=== PATIENT | male | born 1960 | race Caucasian/White ===

== ENCOUNTER → 2021-04-22 15:15 | Outpatient (BNVA) | payer BC, SELFPAY | PROVIDERS: Family Provider Family Medicine; Visit Provider Surgery | DX: Z01.812 Encounter for preprocedural laboratory examination (principal); Z20.822 Contact with and (suspected) exposure to COVID-19 | CPT/HCPCS: 87635 ==

== ENCOUNTER 2021-04-25 11:52 | Outpatient (CLI) | payer BC, SELFPAY ==
[2021-04-25 12:05] VITALS: BP 144/92; PULSE 86; RESP 16; TEMP 36.6; O2SAT 97; BMI 22.3
[2021-04-25 12:58] VITALS: BP 126/83; PULSE 82; RESP 16; TEMP 36.6; O2SAT 97
[2021-04-25 13:54] VITALS: BP 126/83; PULSE 86; RESP 16; TEMP 36.6; O2SAT 98
== END 2021-04-25 11:53 | disposition home or self-care (01) ==
LOC: OPS 11:55
PROVIDERS: PCP Family Medicine; Visit Provider Family Medicine
DX: U07.1 COVID-19 (principal)
CPT/HCPCS: 96365

== ENCOUNTER → 2021-06-12 14:11 | Outpatient (BNVA) | payer BC, SELFPAY | PROVIDERS: PCP Family Medicine; Visit Provider Surgery | DX: Z20.822 Contact with and (suspected) exposure to COVID-19 (principal) | CPT/HCPCS: 87635 ==

== ENCOUNTER 2021-07-05 08:40 | Day surgery (SDC) | payer BC, SELFPAY ==
[2021-04-22 15:29] VITALS: BMI 23.7
[2021-07-03 10:40] VITALS: BMI 22.5
--- NOTE | 2021-07-05 09:31 | P.ANESASSM_ITS ---
Pre-Anesthetic Assessment Height/Weight: Height 1.96 m Weight 86.183 kg Preop Diagnosis: diagnostic Operation Date: 07/05/21 10:00 Proposed Procedures p Colonoscopy 66117 Z80.0(Not Applicable) - Calvin Quiroga MD Familial anesthetic complications: None Was Beta Erika taken within 24 hours: N/A Was Clonidine taken within 24 hours: N/A Social No alcohol and No tobacco Exam alert, oriented x 3, clear to auscultation bilaterally and regular rate & rhythm Airway Submandibular: within normal limits Cervical ROM: within normal limits Mallampati: Class II Dentition: chipped Neuropsych Parkinson's Anesthetic Plan ASA status: 2 Anesthesia: MAC Medications/Allergies Home Medications Medication Instructions Recorded Confirmed Last Taken Type carbidopa 25 mg-levodopa 100 mg 1 tab PO TID 03/05/21 07/03/21 Unknown History tablet (Sinemet) rasagiline 1 mg tablet 1 mg PO DAILY 03/05/21 07/03/21 Unknown History coenzyme Q10 100 mg capsule 400 mg PO BID 07/03/21 07/03/21 Unknown History (CoQ-10) Allergies Allergy/AdvReac Type Severity Reaction Status Date / Time No Known Allergies Allergy Unverified 03/05/21 14:42 [facility] Anesthesia Medical History Parkinsons Surgical History History of appendectomy History of back surgery Family History Mother Colon cancer Social History Smoking and tobacco status: never smoked Alcohol intake: never Data Anesthesia Cardiac Studies: No Data to Display
[2021-07-05 09:34] VITALS: BP 161/131; PULSE 93; RESP 18; TEMP 36.3; O2SAT 99
[2021-07-05] MEDS: sodium chloride 0.9% 1,000 ML 30 ML IV (09:40)
--- NOTE | 2021-07-05 10:17 | P.HP_ITS ---
Same Day Surgery H&P Indication for Procedure/HPI DATE OF PROCEDURE: July 05, 2021 CHIEF COMPLAINT/INDICATIONFOR SURGICAL PROCEDURE: colonoscopy PREOP DIAGNOSIS: diagnostic PLANNED PROCEDURE: Operation Date: 07/05/21 10:00 Proposed Procedures p Colonoscopy 07466 Z80.0(Not Applicable) - Calvin Quiroga MD Medications/Allergies* Home Medications Medication Instructions Recorded Confirmed Type carbidopa 25 mg-levodopa 100 mg 1 tab PO TID 03/05/21 07/03/21 History tablet (Sinemet) rasagiline 1 mg tablet 1 mg PO DAILY 03/05/21 07/03/21 History coenzyme Q10 100 mg capsule 400 mg PO BID 07/03/21 07/03/21 History (CoQ-10) Allergies/Adverse Reactions Allergy/AdvReac Type Severity Reaction Status Date / Time No Known Allergies Allergy Verified 07/05/21 09:34 Current Medications: Generic Name Dose Route Start Last Admin Trade Name Freq PRN Reason Stop Dose Admin Sodium Chloride 1,000 mls @ 30 mls/hr 07/05/21 09:30 07/05/21 09:40 Sodium Chloride 0.9% IV 07/06/21 09:29 30 mls/hr .Q24H AYE Administration Pertinent History/Comorbid Conditions* Medical History (Updated 03/05/21 @ 15:01 by Calvin Quiroga MD) Parkinsons Surgical History (Updated 03/05/21 @ 15:01 by Calvin Quiroga MD) History of appendectomy History of back surgery Family History (Updated 03/05/21 @ 14:49 by Ervin Campos MA) Colon cancer Mother Social History Smoking and tobacco status: never smoked Alcohol intake: never Pertinent Exam Findings alert, oriented x 3 and regular rate & rhythm Recommendations Surgery/Procedure today Coding Level of Care Code Acute Scrap Iron Loader for Chg Inderjit
[2021-07-05 10:56] VITALS: BP 121/86; PULSE 69; RESP 12; TEMP 36.3; O2SAT 100
--- NOTE | 2021-07-05 11:03 | ANE.PACU2 ---
Inpatient post-anesthesia follow up: Airway intact: Yes Vital signs: Temperature 97.4 F Pulse Rate 69 Respiratory Rate 12 Blood Pressure 121/86 Pulse Oximetry 100 Oxygen Delivery Me thod Room Air Oxygen Flow Rate Fraction of Inspir ed Oxygen Hydration adequate: Yes Nausea and vomiting: No Pain level: 1 Mental status: Baseline
[2021-07-05 11:05] VITALS: BP 149/102; PULSE 64; RESP 18; O2SAT 98
== END 2021-07-05 11:25 | disposition home or self-care (01) ==
PROVIDERS: PCP Family Medicine; Visit Provider Surgery
PROC: 0DJD8ZZ Inspection of Lower Intestinal Tract, Via Natural or Artificial Opening Endoscopic (ICD-10-PCS; CPT 45378; principal; 2021-07-05 10:00)
DX: D12.5 Benign neoplasm of sigmoid colon (principal); K64.8 Other hemorrhoids; Q27.39 Arteriovenous malformation, other site; Z80.0 Family history of malignant neoplasm of digestive organs; G20 Parkinson's disease
CPT/HCPCS: 45385; 88305; J2704; J7030

== ENCOUNTER 2022-06-09 09:35 | Emergency (ER) | payer OTHER, SELFPAY ==
[2022-06-09 09:40] VITALS: BP 170/103; PULSE 97; RESP 14; TEMP 36.5; O2SAT 99; BMI 24.9
--- NOTE | 2022-06-09 09:59 | ED_ITS ---
HPI - Extremity Injury (Upper) General: Chief Complaint: Wound/Laceration Stated Complaint: left ring finger injury Time Seen by Provider: 06/09/22 09:45 Source: patient Mode of arrival: ambulatory Limitations: no limitations History of Present Illness: Patient is a nice 62-year-old male here for evaluation of a left finger injury that he sustained at work just prior to arrival after he accidentally smashed the finger between 2 pieces of heavy equipment. This is a workers comp injury. Last tetanus unknown. complaint: injury to: left and finger Onset (ago): hour(s) Other Extremity Injury: Left: fingers Other injuries: none Place: work Severity: moderate Relieving factors: none Exacerbating factors: none Context: crush Associated symptoms: Reports no associated symptoms; Denies weakness in extremities Treatments prior to arrival: bandage Review of Systems Musc: Reports: extremity pain (L finger pain) Skin/Breast: Reports: other (skin avulsion L finger) Neuro: Denies: numbness in extremities, weakness in extremities or sensory changes PFS ED PFSH: Medical History Parkinsons Surgical History History of appendectomy History of back surgery Status post colonoscopy with polypectomy (07/05/21) Family History Mother Colon cancer Social History Smoking and tobacco status: never smoked Alcohol intake: never Physical Exam Const: COMMON NORMALS: no acute distress, average body habitus, patient oriented x3, no limitations, healthy appearing, alert and well nourished Extremity: GENERAL: Yes normal exam except as noted LEFT UPPER EXTREMITY: Yes hand & digits OTHER: pt has avulsion of the distal palmar fat pad of L ring finger with no exposed bone/tendon/muscle; he has a subungual hematoma to that finger; no nail injury/damage Neuro: COMMON NORMALS: patient oriented x3, moves all extremities, no focal motor deficits and no sensory deficits noted SENSORIUM/ORIENTATION: Yes alert Procedures Nail Trephination Location (finger): left Location (toes): fourth digit Sterile prep: chlorhexidine Method of drainage: nail cautery Procedure successful: Yes Patient tolerated procedure: well Course Vital Signs: Vital signs: Vital Signs Temperature 97.7 F 06/09/22 09:40 Pulse Rate 97 06/09/22 09:40 Respiratory Rate 14 06/09/22 09:40 Blood Pressure 170/103 06/09/22 09:40 Pulse Oximetry 99 06/09/22 09:40 Oxygen Delivery Me thod 06/09/22 09:40 MDM - Extremity Injury (Upper) Medical Decision Making XR is negative for bony injury. He has avulsion of the distal finger fat pad that is nonrepairable and will have to heal by secondary intent. Tetanus was updated here. He was given IM Ancef and will be placed on oral antibiotics. Subungual hematoma was evacuated with nail trephination. He will follow-up with Worker's Comp. as directed. They can refer to wound care if needed. Wound care discussed at home. Return to ED precautions given. Lab Data Radiology Impressions Finger X-Ray 06/09/22 09:59 Impression: Negative for left fourth finger fracture. Discharge Plan Discharge Patient Disposition: Home Clinical Impression: Subungual hematoma of left ring finger Crushing injury of left ring finger Qualifiers: Encounter type: initial encounter Qualified Code(s): S67.195A - Crushing injury of left ring finger, initial encounter Avulsion of skin of finger without complication Qualifiers: Encounter type: initial encounter Qualified Code(s): S61.209A - Unspecified open wound of unspecified finger without damage to nail, initial encounter Condition: Stable Prescriptions: New cephalexin 500 mg capsule 500 mg PO Q6H 7 Days Qty: 28 0RF No Action carbidopa-levodopa [Sinemet] 25-100 mg tablet 1 tab PO TID rasagiline 1 mg tablet 1 mg PO DAILY coenzyme Q10 [CoQ-10] 100 mg Capsule 400 mg PO BID Discharge Orders: Discharge ED (Routine); Ordered 06/09/22 Ordered By: Yasmin Luu Referrals: Peña Carr MD [Primary Care Provider] - Patient Instructions: Subungual Hematoma, Skin Avulsion (ED), Crush Injury (ED) Activity Restrictions/Additional Instructions: As we discussed keep wound clean with warm soap and water. You have been instructed on wet-to-dry dressing changes. Take full antibiotic course. Please follow-up with Worker's Comp. as instructed. Unfortunately your wound cannot be repaired and will have to heal by secondary intent. Worker's Comp. or primary care may refer you to wound care if they feel this is indicated. Coding Level of Care Code ED Rf Test Engineer for Diony Jansen
--- NOTE | 2022-06-09 09:59 | XR_ITS ---
WS: [id number] 3 views of the left fourth finger, 06/09/2022 Clinical Data: trauma; ring finger Comparison: None. Findings: No fractures or dislocations are seen. There is soft tissue injury to the ventral surface of the dist al phalanx. The joint spaces are not remarkable. XR/XR finger LT min 2V 09818 Impression: Negative for left fourth finger fracture.
[2022-06-09] MEDS: ceFAZolin 1,000 mg SDV 1000 MG IM (11:32)
[2022-06-09] MEDS: tetanus-dipt-pertussis 0.5 mL SDV IM (11:33)
== END 2022-06-09 11:37 | disposition home or self-care (01) ==
PROVIDERS: Emergency Provider Physician Assistant; PCP Family Medicine
DX: S67.195A Crushing injury of left ring finger, initial encounter (principal); S60.142A Contusion of left ring finger with damage to nail, initial encounter; S61.205A Unspecified open wound of left ring finger without damage to nail, initial encounter; G20 Parkinson's disease; W31.9XXA Contact with unspecified machinery, initial encounter; Y99.0 Civilian activity done for income or pay; Z23 Encounter for immunization
CPT/HCPCS: 11740; 73140; 90471; 90715; 96372; 99284; J0690

== ENCOUNTER → 2023-01-16 08:12 | Outpatient (BNVA) | payer BC, SELFPAY | PROVIDERS: PCP Family Medicine; Visit Provider Family Medicine | DX: I10 Essential (primary) hypertension (principal); Z00.00 Encounter for general adult medical examination without abnormal findings | CPT/HCPCS: 80053; 80061 ==

== ENCOUNTER → 2023-08-04 14:50 | Outpatient (BNVA) | payer BC, SELFPAY | PROVIDERS: PCP Family Medicine; Visit Provider Podiatrist Foot & Ankle Surgery | DX: M21.611 Bunion of right foot; M21.612 Bunion of left foot | CPT/HCPCS: 73630 ==

== ENCOUNTER 2023-10-30 05:52 | Day surgery (SDC) | payer BC, SELFPAY ==
[2023-10-30] VITALS (7 sets, daily range): BP systolic 95–115; BP diastolic 57–87; PULSE 60–87; RESP 16–18; TEMP 36.2–36.6; O2SAT 96–100; BMI 22.4
--- NOTE | 2023-10-30 | XR_ITS ---
WS: [id number] C-ARM RADIOGRAPHS LEFT FOOT; 2 IMAGES HISTORY: KEVIN PICS COMPARISON: None available. Intraoperative imaging during intraoperative fusion at the first metatarsophalangeal joint. XR/XR foot LT 2V 13254 IMPRESSION: Intraoperative imaging during first metatarsal phalangeal joint fusion.
[2023-10-30] MEDS: sodium chloride 0.9% 1,000 ML 30 ML IV (06:17)
--- NOTE | 2023-10-30 06:17 | ANES.PREANE2 ---
Pre-Anesthetic Assessment Height/Weight: Height 1.96 m Weight 85.729 kg Temp Pulse Resp BP Pulse Ox O2 Del Method 97.5 F L 87 18 115/87 96 Room Air 10/30/23 06:08 10/30/23 06:08 10/30/23 06:08 10/30/23 06:08 10/30/23 06:08 10/30/23 06:08 Preop Diagnosis: Left bunion Operation Date: 10/30/23 07:00 Proposed Procedures p Arthrodesis Foot Metatarsophalangeal Joint Arthrodesis(Left) - Nils Jimenes, DPM Was Beta Erika taken within 24 hours: N/A Last intake: Intake Last Liquid Date 10/29/23 Last Liquid Time 22:00 Last Solid Date 10/29/23 Last Solid Time 18:00 Social No alcohol and No tobacco Exam alert, oriented x 3, clear to auscultation bilaterally and regular rate & rhythm Airway Submandibular: within normal limits Cervical ROM: within normal limits Mallampati: Class II History/ROS No significant history except as noted CV/HEM Hypertension Neuropsych Parkinsons Anesthetic Plan ASA status: 3 Anesthesia: General Medications/Allergies Home Medications Medication Instructions Recorded Confirmed Last Taken Type rasagiline 1 mg tablet 1 mg PO DAILY 03/05/21 10/30/23 10/29/23 History coenzyme Q10 100 mg capsule 400 mg PO BID 07/03/21 10/30/23 10/29/23 History (CoQ-10) carbidopa 25 mg-levodopa 100 mg 2 tab PO QID 11/11/22 10/30/23 10/29/23 History tablet (Sinemet) lisinopril 5 mg tablet 5 mg PO DAILY #90 tabs 11/11/22 10/30/23 10/29/23 Rx amantadine HCl 100 mg tablet 100 mg PO BID 08/04/23 10/30/23 10/29/23 History entacapone 200 mg tablet 200 mg PO QID 08/04/23 10/30/23 10/29/23 History Allergies Allergy/AdvReac Type Severity Reaction Status Date / Time No Known Allergies Allergy Verified 10/30/23 06:03 [facility] Anesthesia Medical History Hypertension Parkinsons Surgical History Status post colonoscopy with polypectomy (07/05/21) History of back surgery History of appendectomy Family History Mother Colon cancer Social History Smoking and tobacco/nicotine status: never used tobacco/nicotine Alcohol intake: never Substance/Drug Use: never Data Anesthesia Cardiac Studies: No Data to Display
[2023-10-30] MEDS: gabapentin 300 mg Capsule PO (06:18)
[2023-10-30] MEDS: CELEcoxib 200 mg Capsule 400 MG PO (06:18)
--- NOTE | 2023-10-30 06:36 | P.HPUD_ITS ---
Surgery/Procedure H&P Update DATE OF PROCEDURE: October 30, 2023 DATE H&P PERFORMED: 10/23/23 H&P UPDATE INFORMATION: I have reviewed H&P completed within last 30 days, I have examined patient prior to procedure, No changes to prior documentation and H&P is in [facility] EMR on date indicated PREOP DIAGNOSIS: Left bunion PLANNED PROCEDURE: Operation Date: 10/30/23 07:00 Proposed Procedures p Arthrodesis Foot Metatarsophalangeal Joint Arthrodesis(Left) - Nils Jimenes DPM
[2023-10-30] MEDS: ceFAZolin 2,000 mg SDV 2000 MG IVP (06:59)
[2023-10-30] MEDS: BUPivacaine liposome 13.3 mg/mL SDV 20 mL 266 MG INFILTRATI (07:01)
[2023-10-30] MEDS: BUPivacaine 0.5% INJ 10 mL INJECTION (07:02)
--- NOTE | 2023-10-30 08:04 | W.PM.BPON ---
Date of Procedure: 10/30/23 Surgeon: Nils Jimenes DPM Servicenow Administrator Developer(s): Gino Ortiz Procedure(s) performed: First MTPJ fusion left foot Findings of the procedure(s): none Estimated blood loss: 5cc Specimen(s) removed: none Post-operative diagnosis: left foot bunion No complications, Local MAC, 35 min
--- NOTE | 2023-10-30 08:06 | P.OP_ITS ---
Operative Report Date of procedure: October 30, 2023 Pre-op diagnosis: Pain in left foot M79.671 and Left bunion M21.611 Post-op diagnosis: Pain in left foot M79.671 and Left bunion M21.611 Post-op findings: None Procedure done: Left first metatarsal phalangeal joint fusion. CPT code 06726 Implants: Buckingham locking plate with 2.7 and 3.5 mm locking screws, 3-0 Vicryl, 4-0 Vicryl, 4-0 nylon Specimens removed/disposition: None Pathology: None Surgeon: Nils Jimenes DPM Dye Stand Loader: Diana Christian Estimated blood loss: 5 35 IV fluids: See intraoperative documentation Urine output: 0 Complications: No complications Brief History: Patient has failed to respond to painful bunion with arthrosis of the left foot, failed conservative treatments consisting of supportive shoe gear, activity modifications, stretching, orthotics, topical and oral anti-inflammatories, padding and spacing. Wishes to discuss surgical options. I reviewed at length with the patient, the risks, potential complications, benefits, alternatives, expectations, and typical outcomes associated with the surgery. The risks and potential complications were explained in detail, including but not limited to infection, wound dehiscence or soft tissue complications, bleeding and hematoma, chronic edema, neuritis or nerve damage producing numbness or chronic pain, CRPS, failure to relieve pain or worsening pain, thick / painful / unsightly scar, limited motion / stiffness, malposition, delayed union, malunion, or nonunion, fracture, reaction to implants, anesthetic complications, venous thromboembolism, and deformity recurrence. I discussed the notion of no regrets with the patient as it pertains to complications and outcomes. The patient seemed to understand the nature of the proposed care and required convalescence. They asked appropriate questions, answered to their satisfaction. They are aware no guarantees can be made as to a satisfactory outcome and they understand there may be other possible unforeseen complications or outcomes not listed here that will be treated accordingly if they arise. There were no written or implied guarantees given to the patient. They gave informed consent to proceed. Procedure: Under mild sedation the patient was brought to the operating room and remained on the gurney in supine position.? A timeout was performed.? Anesthesia was then administered by the anesthesia service.? Local anesthesia injected by myself consisting of 20 cc of 0.5% Marcaine plain in a left Torres block fashion and Exparel infiltrated subcutaneously in a grid like fashion at the operative site.? Well-padded pneumatic tourniquet was applied to the left ankle.? The left lower extremity was then scrubbed, prepped and draped utilizing normal aseptic technique.? The left foot was then exanguinated with an Esmarch bandage and the tourniquet was inflated to 250 mmHg. Attention was directed to the dorsal medial aspect of the left first metatarsal phalangeal joint where osseous bossing was appreciated dorsally and decreased dorsiflexion also appreciated intraoperatively with osseous and range of motion.? Surgical incision was planned out this was a linear longitudinal incision medial and parallel to the extensor houses longus tendon directly over the first metatarsal phalange joint which was then carried out utilizing a #15 blade through skin with dissection carried down through subcutaneous tissue to the layer of periosteum and joint capsule utilizing sharp and blunt technique.? Care was taken to retract and preserve neurovascular and tendinous structures.? All bleeders were ligated and cauterized as necessary.? A linear capsulotomy was performed in the head of the first metatarsal and base of the proximal phalanx were freed from their soft tissue and capsular attachments and denuded of all articular surface utilizing cone and cup reamers.? Incision was flushed with sign solution and the head of the first metatarsal base of the proximal phalanx was prepped for arthrodesis utilizing a fenestrating drill bit.? The left hallux was held in slight valgus, slight dorsiflexion and neutral position in the frontal plane with toenail at 12:00 followed by fixation utilizing a primary arthrodesis first metatarsophalangeal joint plate by Radha with excellent bony apposition and compression noted.? The distal cluster of 3 screw holes were filled utilizing 2.7 mm locking screws in the proximal plate was filled with a total of 2 locking screws and 1 nonlocking screw with excellent bony apposition and compression noted and anatomic position maintained.? Fluoroscopy in the AP, oblique and lateral views confirmed excellent placement of hardware not violating adjacent joints or being proud.? The incision was then flushed with copious amounts of sterile skin solution.? The capsule and periosteum reapproximated utilizing 3-0 Vicryl.? Subcutaneous tissue was reapproximated utilizing 4-0 Vicryl and skin with 4-0 nylon.? The incision was then dressed with Adaptic, sterile 4 x 4's, Kerlix and Manuel wrap.? A cam boot was then applied to the left lower extremity and the tourniquet was deflated and a prompt hyperemic response was noted to the distal digits of the left foot.? Patient tolerated the procedure and anesthesia well and was transferred to the PACU with vital signs stable and vascular status intact.? Following a period of postop monitoring he will be discharged home is to be nonweightbearing to the left foot.
[2023-10-30] MEDS: HYDROcodone-acetaminophen 10-325 mg Tablet 1 TAB PO (08:35)
--- NOTE | 2023-10-30 09:56 | ANE.PACU2 ---
Inpatient post-anesthesia follow up: Airway intact: Yes Vital signs: Temperature 97.6 F Pulse Rate 60 Respiratory Rate 16 Blood Pressure 102/74 Pulse Oximetry 100 Oxygen Delivery Me thod Room Air Oxygen Flow Rate 8 Fraction of Inspir ed Oxygen Hydration adequate: Yes Nausea and vomiting: No Pain level: 1 Mental status: Baseline
== END 2023-10-30 08:50 | disposition home or self-care (01) ==
PROVIDERS: PCP Family Medicine; Visit Provider Podiatrist Foot & Ankle Surgery
PROC: (CPT 28740; principal; 2023-10-30 07:00)
DX: M21.611 Bunion of right foot (principal); I10 Essential (primary) hypertension; G20.A1 Parkinson's disease without dyskinesia, without mention of fluctuations
CPT/HCPCS: 28750; 73620; 76000; C1713; C9290; J0690; J2704; J3010; J3490; J7030

== ENCOUNTER → 2023-11-12 08:45 | Outpatient (BNVA) | payer BC, SELFPAY | PROVIDERS: PCP Family Medicine; Visit Provider Podiatrist Foot & Ankle Surgery | DX: Z98.890 Other specified postprocedural states (principal) | CPT/HCPCS: 73630 ==

== ENCOUNTER → 2023-12-10 12:52 | Outpatient (BNVA) | payer BC, SELFPAY | PROVIDERS: PCP Family Medicine; Visit Provider Podiatrist Foot & Ankle Surgery | DX: Z98.890 Other specified postprocedural states (principal); M21.611 Bunion of right foot; M21.612 Bunion of left foot; M79.671 Pain in right foot; M79.672 Pain in left foot | CPT/HCPCS: 73630 ==

== ENCOUNTER → 2023-12-24 12:52 | Outpatient (BNVA) | payer BC, SELFPAY | PROVIDERS: PCP Family Medicine; Visit Provider Podiatrist Foot & Ankle Surgery | DX: Z98.890 Other specified postprocedural states (principal) | CPT/HCPCS: 73630 ==

== ENCOUNTER → 2024-01-28 12:56 | Outpatient (BNVA) | payer BC, SELFPAY | PROVIDERS: PCP Family Medicine; Visit Provider Podiatrist Foot & Ankle Surgery | DX: Z98.890 Other specified postprocedural states (principal); I10 Essential (primary) hypertension; Z00.00 Encounter for general adult medical examination without abnormal findings; Z23 Encounter for immunization; G20.C Parkinsonism, unspecified | CPT/HCPCS: 73630; 80053; 80061; 84153; 85025 ==

== ENCOUNTER → 2025-03-28 10:15 | Outpatient (BNVA) | payer BC, SELFPAY | PROVIDERS: PCP Family Medicine; Visit Provider Family Medicine | DX: Z00.00 Encounter for general adult medical examination without abnormal findings (principal); I10 Essential (primary) hypertension | CPT/HCPCS: 80053; 80061; 85025 ==